=== PATIENT | female | born 1990 | race Caucasian/White ===

== ENCOUNTER 2016-11-21 23:50 | Emergency (ER) | payer BC ==
[~2016-11-21] VITALS: Ht 167.6 cm; Wt 113.6 kg
[2016-11-22 00:32] VITALS: BP 124/90
[2016-11-22] MEDS ORDERED: WELLBUTRIN XL300 M1 PO (04:56)
== END 2016-11-22 00:32 | disposition home or self-care (01) ==
LOC: ED 23:50
DX: N89.8 Other specified noninflammatory disorders of vagina (principal)
CPT/HCPCS: 13313

== ENCOUNTER 2020-02-19 01:11 | Emergency (ER) | payer BC ==
[~2020-02-19 01:11] MED LIST: WELLBUTRIN XL300 M1 PO
[2020-02-19] MEDS ORDERED: PRILOSEC 20MG20 MG PO (01:23)
[2020-02-19 01:44] LABS: URINE COLOR BLOODY
[2020-02-19 01:45] LABS: PH-URINE 6.5 (5.0 - 8.0); URINE APPEARANCE CLOUDY; URINE BILIRUBIN NEGATIVE (NEGATIVE); URINE BLOOD 250 ery/uL (NEGATIVE); URINE GLUCOSE NEGATIVE (NEGATIVE); URINE KETONE NEGATIVE (NEGATIVE); URINE LEUKOCYTE ESTERASE 2+ (NEGATIVE); URINE NITRATE NEGATIVE (NEGATIVE); URINE PROTEIN(semi-quant) 1+ mg/dL (NEGATIVE); URINE UROBILINOGEN NORMAL (NORMAL); URINE WBC >50 /hpf (0-3)
[2020-02-19 01:52] LABS: EOS # 0.1 (0.04-0.40); EOS % 0.4 % (1.0-5.0); HEMATOCRIT 38.4 % (37.0-47.0); HEMOGLOBIN 12.2 g/dL (12.5-16.0); LYMPH# 3.2 (1.50-4.00); MEAN CELL VOLUME 80 fl (78-100); MEAN CORPUSCULAR HEMOGLOBIN 26 pg (27-31); MEAN CORPUSCULAR HGB CONC 32 g/dL (33-37); MEAN PLATELET VOLUME 10.5 fl (7.4-10.4); MONO # 1.1 (0.20-0.80); PLATELET COUNT 370 K/mm3 (130-400); RED BLOOD COUNT 4.79 M/mm3 (4.10-5.30); RED CELL DISTRIBUTION WIDTH 14.5 % (11.5-14.5); WHITE BLOOD COUNT 14.9 K/mm3 (4.8-10.8)
[2020-02-19 01:57] LABS: NEU # 10.4 (1.40-6.50)
[2020-02-19 01:59] LABS: ALBUMIN 4.1 g/dL (3.5-5.0); POTASSIUM 3.6 mmol/L (3.5-5.1)
[2020-02-19 02:00] LABS: CALCIUM 9.9 mg/dL (8.3-10.5)
[2020-02-19 02:02] LABS: TOTAL PROTEIN 7.8 g/dL (6.4-8.3)
[2020-02-19 02:03] LABS: TOTAL BILIRUBIN 0.2 mg/dL (0.2-1.2)
[2020-02-19] MEDS ORDERED: CEPHALEXIN500 M1 PO (03:50)
[2020-02-19 03:52] VITALS: BP 118/70
== END 2020-02-19 03:58 | disposition home or self-care (01) ==
LOC: ED 01:11
PROVIDERS: Nurse Practitioner
DX: N39.0 Urinary tract infection, site not specified (principal); F32.9 Major depressive disorder, single episode, unspecified; K21.9 Gastro-esophageal reflux disease without esophagitis; Z32.02 Encounter for pregnancy test, result negative
CPT/HCPCS: J0696; J1885; J7030

== ENCOUNTER → 2020-05-13 | Outpatient (CLI) | payer BC ==
[~2020-05-13] MED LIST changes: +CEPHALEXIN500 M1 PO; +PRILOSEC 20MG20 MG PO
== END ==
LOC: LAB 16:19
DX: N30.01 Acute cystitis with hematuria (principal)

== ENCOUNTER → 2023-03-24 | Outpatient (CLI) | payer BC | LOC: LAB 13:48 | DX: J06.9 Acute upper respiratory infection, unspecified (principal); Z20.822 Contact with and (suspected) exposure to COVID-19 ==